=== PATIENT | female | born 1935 | race Caucasian/White ===

== ENCOUNTER 2018-12-14 21:07 | Emergency (ER) | payer OTHER ==
[~2018-12-14] VITALS: Ht 154.9 cm; Wt 77.6 kg
[2018-12-14 21:16] VITALS: BP 185/95
--- NOTE | 2018-12-14 21:26 | NUR ---
PT TAKEN TO BED 11
--- NOTE | 2018-12-14 21:39 | NUR ---
PT TO ED WITH DAUGHTER FOR RT HIP AND LOWER BACK PAIN S/P FALL IN TUB X TODAY AT 1930. NO OBVIOUS DEFORMITY NOTED. PT ABLE TO MOVE INDEPENDETLY IN BED WITHOUT OBVIOUS DISTRESS. PT IN BED, PENDING MD FERREIRA.
--- NOTE | 2018-12-14 22:12 | NUR ---
Dr. Romero examining patient.
[2018-12-14] MEDS ORDERED: ONDANSETRON 4 MG/2 ML VIAL IVP ONE (22:15)
[2018-12-14] MEDS ORDERED: fentaNYL 0.05 MG/ML VIAL IVP ONE (22:15)
--- NOTE | 2018-12-14 22:41 | NUR ---
TO CT VIA [facility]
[2018-12-14 22:42] LABS: HEMATOCRIT 36.1 % (36-48); HEMOGLOBIN 10.9 g/dL (12.0-16.0); MEAN CORPUSCULAR HEMOGLOBIN 27 pg (27-31); MEAN CORPUSCULAR HGB CONC 30 g/dL (33-37); MEAN CORPUSCULAR VOLUME 90.8 fL (80-94); PLATELET COUNT (AUTO) 232 K/uL (140-450); RED BLOOD CELL COUNT(AUTO) 3.98 MIL/uL (4.20-5.40); RED CELL DISTRIBUTION WIDTH 14.9 % (11.6-13.7)
[2018-12-14 22:53] LABS: ANION GAP 11.9 (8-16); CARBON DIOXIDE 23.6 mmol/L (21-32); CHLORIDE 108 mmol/L (98-107); CREATININE 0.9 mg/dL (0.6-1.3); GLUCOSE 255 mg/dL (74-106); POTASSIUM 3.5 mmol/L (3.5-5.1); SODIUM SERUM 140 mmol/L (136-145); UREA NITROGEN, BLOOD 31 mg/dL (7-18)
--- NOTE | 2018-12-14 22:53 | NUR ---
RETURN FROM CT. REATTACHED TO CONTINOUS CARDIAC MONITORING. REPORTING RELIEF OF PAIN FROM IV FENTANYL ADMIN. WILL CONTINUE TO ASSESS.
[2018-12-14 22:58] LABS: PROTHROMBIN TIME 10.3 secs (10.8-13.4)
[2018-12-14 22:59] LABS: ALBUMIN 3.6 g/dL (3.4-5.0); ASPARTATE AMINOTRANSFERASE 17 U/L (15-37); TOTAL BILIRUBIN 0.5 mg/dL (0.0-1.0); WHITE BLOOD COUNT (AUTO) 84.1 K/uL (4.8-10.8)
[2018-12-14 23:01] LABS: LYMPHOCYTES % (MANUAL) 88 % (20-46)
[2018-12-14] MEDS ORDERED: KETOROLAC 30 MG/ML VIAL IVP ONE (23:35)
--- NOTE | 2018-12-14 23:45 | NUR ---
PT MEDICATED ORDERED. WILL CONTINUE TO ASSESS.
[2018-12-15 00:07] VITALS: BP 134/80
--- NOTE | 2018-12-15 00:07 | NUR ---
IV removed, catheter intact and site benign. Applied folded 4x4 gauze and tape to stop bleeding.
== END 2018-12-15 00:07 | disposition home or self-care (01) ==
LOC: MED 21:07
DX: S30.0XXA Contusion of lower back and pelvis, initial encounter (principal); Z96.651 Presence of right artificial knee joint; W18.2XXA Fall in (into) shower or empty bathtub, initial encounter; Y93.E1 Activity, personal bathing and showering; Y92.091 Bathroom in other non-institutional residence as the place of occurrence of the external cause; Y99.8 Other external cause status
CPT/HCPCS: 36415; 74176; 80053; 85025; 85610; 85730; 86886; 86900; 86901; 96374; 96375; 99284; J1885; J2405; J3010

== ENCOUNTER 2019-07-22 16:19 | Emergency (ER) | payer OTHER ==
[~2019-07-22] VITALS: Ht 154.9 cm; Wt 73.5 kg
--- NOTE | 2019-07-22 16:19 | NUR ---
84 YO F BIB DAUGTHER FROM HOME C/O L SIDE DROOLING WHILE EATING SPAGHETTI. PT REPORTED TO BE ALERT, ORIENTED, WITH NO NOTED WEAKNESS. AT THE ER, PT WAS AOX4, ABLE TO FOLLOW COMMANDS. PERLL 3MM. PT NOTED WITH L UPPER EXTREMITY WEAKNESS. LOWER EXTREMITIES NORMAL STRENGTH. NO PAIN REPORTED AT THIS TIME. PATIENT POSITIONED COMFORTABLY IN BED. BED RAILS UP. ER MD MADE AWARE.
--- NOTE | 2019-07-22 16:30 | NUR ---
PT IN WHEELCHAIR TO ER BED 03
--- NOTE | 2019-07-22 16:39 | NUR ---
[facility]
[2019-07-22 16:49] VITALS: BP 135/78
--- NOTE | 2019-07-22 17:00 | NUR ---
PATIENT PUT ON O2 2LPM VIA [facility]
[2019-07-22 17:06] LABS: HEMATOCRIT 38.6 % (36-48); HEMOGLOBIN 11.6 g/dL (12.0-16.0); MEAN CORPUSCULAR HEMOGLOBIN 26 pg (27-31); MEAN CORPUSCULAR HGB CONC 30 g/dL (33-37); MEAN CORPUSCULAR VOLUME 85.5 fL (80-94); PLATELET COUNT (AUTO) 236 K/uL (140-450); RED BLOOD CELL COUNT(AUTO) 4.52 MIL/uL (4.20-5.40); RED CELL DISTRIBUTION WIDTH 18.3 % (11.6-13.7)
--- NOTE | 2019-07-22 17:30 | NUR ---
PATIENT PICKED UP BY [facility] TO BE TRANSFERRED TO [facility]
[2019-07-22 17:31] VITALS: BP 135/78
[2019-07-22 17:45] LABS: PROTHROMBIN TIME 9.9 secs (10.8-13.4)
[2019-07-22 17:57] LABS: WHITE BLOOD COUNT (AUTO) 81.8 K/uL (4.8-10.8)
[2019-07-22 18:19] LABS: LYMPHOCYTES % (MANUAL) 7 % (20-46); MONOCYTES % (MANUAL) 3 % (5-12)
[2019-07-22 20:50] LABS: ANION GAP 14.8 (8-16); CARBON DIOXIDE 27.3 mmol/L (21-32); CHLORIDE 104 mmol/L (98-107); CREATININE 0.9 mg/dL (0.6-1.3); GLUCOSE 142 mg/dL (74-106); POTASSIUM 4.1 mmol/L (3.5-5.1); SODIUM SERUM 142 mmol/L (136-145); UREA NITROGEN, BLOOD 25 mg/dL (7-18)
[2019-07-22 20:55] LABS: ALBUMIN 3.7 g/dL (3.4-5.0); ASPARTATE AMINOTRANSFERASE 27 U/L (15-37); TOTAL BILIRUBIN 0.5 mg/dL (0.0-1.0)
== END 2019-07-22 17:30 | disposition short-term general hospital (02) ==
LOC: MED 16:19
DX: I63.9 Cerebral infarction, unspecified (principal); I10 Essential (primary) hypertension; F03.90 Unspecified dementia, unspecified severity, without behavioral disturbance, psychotic disturbance, mood disturbance, and anxiety; Z98.890 Other specified postprocedural states
CPT/HCPCS: 36415; 70450; 71045; 80053; 84484; 85025; 85610; 85730; 86886; 86900; 86901; 93005; 99285; Q0092